=== PATIENT | male | born 1985 | race Caucasian/White ===

== ENCOUNTER 2019-06-30 17:23 | Emergency (ER) | payer OTHER ==
[~2019-06-30] VITALS: Ht 170.2 cm; Wt 84.7 kg
--- NOTE | 2019-06-30 18:15 | NUR ---
PT TO ROOM FROM LOBBY.
[2019-06-30] MEDS ORDERED: ONDANSETRON ODT 8 MG PO PRN (18:30)
[2019-06-30] MEDS ORDERED: ONDANSETRON ODT 8 MG ONE (18:54)
[2019-06-30 18:56] VITALS: BP 122/72
--- NOTE | 2019-06-30 19:01 | NUR ---
PT ON ALL ROOM MONITORING, WARM BLANKET PROVIDED, CALL LIGHT WITHIN REACH. PT UPDATED ON POC, URINAL AT BS.
[2019-06-30 19:16] LABS: ALANINE AMINOTRANSFERASE 40 U/L (12-78); ALBUMIN 3.8 g/dL (3.4-5.0); ANION GAP 8 mmol/L (5-15); CALCIUM 8.7 mg/dL (8.5-10.1); CHLORIDE 107 mmol/L (98-107); CREATININE 1.05 mg/dL (0.7-1.3)
[2019-06-30 19:18] LABS: BASOPHILS # (AUTO) 0.06 x10^3/uL (0-0.1); BASOPHILS % (AUTO) 1 % (0-1); EOSINOPHILS # (AUTO) 0.53 x10^3/uL (0-0.4); EOSINOPHILS % (AUTO) 6 % (1-7); LYMPHOCYTES # (AUTO) 2.95 x10^3/uL (1-3.4); LYMPHOCYTES % (AUTO) 32 % (22-44); MD NO; MEAN CORPUSCULAR HEMOGLOBIN 31.5 pg (27.5-34.5); MEAN CORPUSCULAR HGB CONC 33.8 g/dL (33.2-36.2); MEAN CORPUSCULAR VOLUME 93.2 fL (81-97); MEAN PLATELET VOLUME 7.7 fL (7.4-10.4); MONOCYTES # (AUTO) 0.49 x10^3/uL (0.2-0.8); MONOCYTES % (AUTO) 5 % (2-9); NEUTROPHILS # (AUTO) 5.28 x10^3/uL (1.8-6.8); NEUTROPHILS % (AUTO) 57 % (42-75); PLATELET COUNT 303 x10^3/uL (130-400); RED BLOOD COUNT 5.31 x10^6/uL (4.38-5.82); RED CELL DISTRIBUTION WIDTH 13.3 % (9.4-14.8)
[2019-06-30 19:20] LABS: ALKALINE PHOSPHATASE 85 U/L (45-117); BILIRUBIN,TOTAL 0.3 mg/dL (0.2-1.0); TOTAL PROTEIN 7.4 g/dL (6.4-8.2); TROPONIN I < 0.015 ng/mL (0.000-0.045)
== END 2019-06-30 20:59 | disposition home or self-care (01) ==
LOC: ED 20:45
DX: R07.9 Chest pain, unspecified (principal); R53.1 Weakness; R42 Dizziness and giddiness; R11.2 Nausea with vomiting, unspecified
CPT/HCPCS: 36415; 71046; 80053; 83690; 84484; 85025; 93005; 99284; Q0162